=== PATIENT | male | born 1955 | race Two or more races ===

== ENCOUNTER 2025-01-18 06:56 | Day surgery (SDC) | payer OTHER ==
[2025-01-18] MEDS ORDERED: fentaNYL CITRATE 50 MCG/ML AMPUL IV ONE (10:30)
[2025-01-18] MEDS ORDERED: MIDAZOLAM HCL 2 MG/2 ML VIAL IV ONE (10:30)
[2025-01-18] MEDS ORDERED: NALOXONE HCL 0.4 MG/ML AMPUL IV ONE (10:30)
[2025-01-18] MEDS ORDERED: DIPHENHYDRAMINE HCL 50 MG/ML VIAL 1ML IV ONE (10:30)
== END 2025-01-18 13:35 | disposition home or self-care (01) ==
LOC: AMB-ENDOS 06:56
PROVIDERS: ATTEND Surgery
DX: D12.5 Benign neoplasm of sigmoid colon (principal); K63.5 Polyp of colon; K57.30 Diverticulosis of large intestine without perforation or abscess without bleeding

== ENCOUNTER 2025-05-24 07:00 | Day surgery (SDC) | payer OTHER ==
[2025-05-21 12:43] VITALS: BP 142/85
[~2025-05-24] VITALS: Ht 162.6 cm; Wt 93.0 kg
[~2025-05-24 07:00] MED LIST: CARDURA1 MG PO; LIPITOR40 MG PO; WELLBUTRIN SR150 MG PO; WELLBUTRIN XL300 MG PO
[2025-05-24] MEDS ORDERED: CEFTRIAXONE SODIUM 2,000 MG VIAL ONE (08:12)
[2025-05-24] MEDS ORDERED: METRONIDAZOLE/SODIUM CHLORIDE 500 MG/100 ML PIGGYBACK IV ONE (08:12)
[2025-05-24] MEDS ORDERED: BUPIVACAINE HCL/MPF 0.5% 30ML VIAL ONE (10:50)
[2025-05-24] MEDS ORDERED: HEMOSTATIC MATRIX 1 KIT KIT TOP ONE (10:50)
[2025-05-24] MEDS ORDERED: POVIDONE-IODINE 118 ML BOTT TOP ONE (10:50)
[2025-05-24] MEDS ORDERED: DIBUCAINE 30 GM TUBE ONE (10:50)
[2025-05-24] MEDS ORDERED: LIDOCAINE HCL 1%/EPINEPHRINE 20ML VIAL IJ ONE (10:50)
[2025-05-24] MEDS ORDERED: TAMSULOSIN HCL 0.4 MG CAP PO ONE ×2 (12:45→15:22)
[2025-05-24] MEDS ORDERED: OXYCODONE HCL5 MG PO (12:48)
[2025-05-24] MEDS ORDERED: MORPHINE SULFATE 4 MG/ML VIAL IV ONE (15:00)
== END 2025-05-24 16:45 | disposition home or self-care (01) ==
LOC: CIR.AMB 07:00
PROVIDERS: ATTEND Surgery
DX: K64.2 Third degree hemorrhoids (principal); K64.4 Residual hemorrhoidal skin tags; K62.5 Hemorrhage of anus and rectum